=== PATIENT | female | born 1985 | race Caucasian/White ===

== ENCOUNTER 2019-04-27 01:56 | Inpatient (IN) | payer OTHER ==
[2019-04-27] VITALS (12 sets, daily range): BP systolic 116–151; BP diastolic 58–77; PULSE 71–100; TEMP 97.5–98.4
[~2019-04-27] VITALS: Ht 162.6 cm; Wt 75.0 kg
--- NOTE | 2019-04-27 02:05 | NUR ---
G2L1. 39-6. Ambulatory to LDR 6 with family. Clean gown on. EFM and TOCO explained and applied. Pt states she thinks her water broke at 0130, moderate amount of clear fluid. Amniotest positive. SVE 9/100/+1. Pt requesting epidural at this time. Pt reports good movement. 0218: called and updated on pts status. See physican notification. 0220: IV started and labs obtained via IV site. LR bolus infusing without difficulties. 0227: Pt feeling the urge to push. Breathing techniques explained to pt. 0234: at bedside for delivery. Pt assisted into footplates and instructed on pushing with contractions per provider. 0240: Spontaneous vaginal delivery of viable female by . to mothers chest where dried and stimulated. Cord clamped X2 and cut by pts mother. Care of assumed by Vitaliy CARLIN. 0243: Spontaneous delivery of intact placenta by . Pitocin started at 333mus/hr per protocol. Lidocaine administered for repair. Second degree laceration repaired by . Fundal message performed. Fundus firm, midline and bleeding minimal. Pericare provided and pads changed. Pt repositioned in bed and ice pack applied. Plan of care and safety percautions explained to pt and family who verbalize understanding. Call light within reach. See doctor timothy.
[2019-04-27 02:41] LABS: BASO % 0.3 % (0.0-2.0); EOS # 0.1 (0.0-0.7); GRAN % 63.8 % (42.2-75.2); HEMATOCRIT 37.5 % (37.0-47.0); HEMOGLOBIN 12.2 g/dl (12.5-16.0); LYMPH # 2.6 (1.2-3.4); LYMPH % 27.9 % (20.0-51.0); MEAN CELL VOLUME 86 fl (80.0-100.0); MEAN CORPUSCULAR HEMOGLOBIN 28 pg (27.0-31.0); MEAN CORPUSCULAR HGB CONC 33 g/dl (33.0-37.0); MEAN PLATELET VOLUME 12.1 fl (7.4-10.4); MONO # 0.6 (0.1-0.6); MONO % 6.6 % (1.7-9.3); PLATELET COUNT 138 K/mm3 (130-400); RED BLOOD COUNT 4.37 M/mm3 (4.10-5.30); REDCELL DISTRIBUTION WIDTH-CV 13.4 % (11.5-14.5)
[2019-04-27] MEDS ORDERED: PRENATAL MVI (05:20)
--- NOTE | 2019-04-27 09:07 | NUR ---
Initial visit; Parents thanked [employer] Representative for offering congratulations and God's blessings for the of their daughter. [employer] Level Marketing Representative thanked family for choosing [facility].
[2019-04-28 07:15] VITALS: BP 126/62; PULSE 86; TEMP 98.2
[2019-04-28] MEDS ORDERED: IBU800 M1 PO (09:01)
--- NOTE | 2019-04-28 10:30 | NUR ---
Patient given discharge instruction and verbalizes understanding. Patient signs discharge papers. 1110: Baby bands all removed 1120: Infant car seat checked and off unit with PCW.[email or web address].
== END 2019-04-28 11:20 | disposition home or self-care (01) | DRG 807 ==
LOC: LDRO 01:56 → LDR 01:58 → LDRO 02:23 → OB 02:24 → LDR 02:24 → OB 06:05
PROVIDERS: Obstetrics & Gynecology; ADMIT Obstetrics & Gynecology
PROC: 0KQM0ZZ Repair Perineum Muscle, Open Approach (ICD-10-PCS; principal; 2019-04-27)
PROC: 10E0XZZ Delivery of Products of Conception, External Approach (ICD-10-PCS; principal; 2019-04-27)
DX: O70.1 Second degree perineal laceration during delivery (principal); Z37.0 Single live birth; Z3A.39 39 weeks gestation of pregnancy
CPT/HCPCS: J2590; J7120